=== PATIENT | male | born 1950 | race Caucasian/White ===

== ENCOUNTER 2017-02-27 08:05 | Day surgery (SDC) | payer MEDICARE, BC ==
[2017-02-27] MEDS ORDERED: fentaNYL 100 MCG/2 ML SDV ONE (08:07)
[2017-02-27] MEDS ORDERED: Propofol 200 MG/20 ML SDV ONE (08:07)
[2017-02-27] MEDS ORDERED: Midazolam 1 MG/ML 2 ML SDV ONE (08:07)
[2017-02-27] MEDS ORDERED: Sodium Chloride 0.9% 1,000 ML IV SCH (09:00)
[2017-02-27 10:57] VITALS: BP 102/70
--- NOTE | 2017-02-27 13:05 | OR ---
DATE OF PROCEDURE: 02/27/2017 PROCEDURE PERFORMED: Colonoscopy. FINDINGS: Normal colonoscopy. PREOPERATIVE DIAGNOSIS: Screening colonoscopy. POSTOPERATIVE DIAGNOSIS: Screening colonoscopy. RISKS: Risks, benefits, alternatives, and limitations including, but not limited to infection, bleeding, and perforation were explained to the patient, and he wished to proceed. PROCEDURE IN DETAIL: The patient was placed in the left lateral decubitus position. Digital rectal exam was performed without abnormality. The scope was introduced and advanced atraumatically to the ileocecal valve. The scope was brought back through the ascending, transverse, descending colon and retroflexed. No evidence of old or new blood. No masses. No diverticulosis. No colitis. The patient tolerated the procedure well. Derrell Underwood MD /[id number]
--- NOTE | 2017-03-20 23:23 | OR ---
BRIEF OPERATIVE REPORT DATE OF PROCEDURE: 02/27/2017 PROCEDURE PERFORMED: Colonoscopy. FINDINGS: Normal colonoscopy. COMPLICATIONS: None. ESTIMATED BLOOD LOSS: 0. INFECTIOUS CATEGORY: Nonapplicable. NOTE: Please see operative report for further details. Derrell Underwood MD /[id number] MTDD
== END 2017-02-27 11:05 | disposition home or self-care (01) ==
LOC: JP.SDS 08:05
PROVIDERS: ATTEND Surgery
DX: Z12.11 Encounter for screening for malignant neoplasm of colon (principal)
CPT/HCPCS: 45378; J2250; J2704; J3010; J7040

== ENCOUNTER 2019-10-14 07:13 | Day surgery (SDC) | payer BC, MEDICARE ==
[~2019-10-14 07:13] MED LIST: Bupivacaine 0.5% 50 ML MDV ONE; Lidocaine 1% with EPINEPHrine 1:100,000 50 ML MDV ONE; Midazolam 1 MG/ML 2 ML SDV ONE; Propofol 200 MG/20 ML SDV ONE; fentaNYL 100 MCG/2 ML SDV ONE
[2019-10-14] MEDS ORDERED: Sodium Chloride 0.9% 1,000 ML IV SCH (07:30)
[2019-10-14] MEDS ORDERED: metroNIDAZOLE/Normal Saline 500 MG in Premix Bag 1 BAG IV ONE (08:15)
[2019-10-14] MEDS ORDERED: ceFAZolin 2 GM in Premix Bag 1 BAG IV ONE (08:15)
[2019-10-14] MEDS ORDERED: Ropivacaine 38 ML, dexAMETHasone 8 MG, EPINEPHrine 0.4 MG, Sodium Chloride 0.9% 39.6 ML NERVRT SCH ×4 (08:45)
[2019-10-14] MEDS ORDERED: Propofol 200 MG/20 ML SDV ONE (08:58)
[2019-10-14] MEDS ORDERED: Ketorolac 60 MG/2 ML SDV ONE (09:30)
[2019-10-14] MEDS ORDERED: Acetaminophen/HYDROcodone 325-5 MG Tab PO ONE (10:28)
[2019-10-14 11:24] VITALS: BP 122/84; PULSE 57
--- NOTE | 2019-10-15 08:59 | OR ---
DATE OF PROCEDURE: 10/14/2019 SURGEON: Derrell Underwood MD PROCEDURE: Repair of right inguinal hernia, recurrent. COMPLICATIONS: None. BASE BRANDER: None. ANESTHESIA: MAC. PREOPERATIVE DIAGNOSIS: Recurrent non-incarcerated, non-strangulated hernia. POSTOPERATIVE DIAGNOSIS: Recurrent non-incarcerated non-strangulated hernia. RISKS: Risks, benefits, alternatives, and limitations including, but not limited to infection, bleeding, injury to testicular structures, testicular necrosis, chronic wounds, chronic pain, seroma, hematoma, and other risks not listed here were explained to the patient, who wished to proceed. PROCEDURE IN DETAIL: The patient was placed supine position. A curvilinear incision was made in a classic fashion in the right lower quadrant. This was carried down with electrocautery to the external oblique aponeurosis. This was opened with a 15 blade and then a Metzenbaum scissors. The indirect inguinal hernia was identified. The sac was quite integrally associated with the testicular artery and vas deferens. Blunt gentle dissection was used to dissect this free. This sac was then mobilized to its base and suture ligated. An extra-large plug and patch system was then placed with interrupted 0 Vicryl sutures approximately every 5 mm. This was surrounded by the cord, with careful attention made not to put undue tension on the cord itself. The external oblique aponeurosis was then reapproximated. The skin was closed with 4-0 Vicryl after subcutaneous approximation of tissues with 3-0 Vicryl. The patient tolerated the procedure well. Derrell Underwood MD /[id number]
--- NOTE | 2019-10-15 09:02 | OR ---
DATE OF PROCEDURE: 10/14/2019 SURGEON: Derrell Underwood MD PROCEDURE: Right rectus sheath block, right transversus abdominis plane block. COMPLICATIONS: None. SYSTEM SUPPORT DEVELOPER: None. RISKS: Risks, benefits, alternatives, and limitations including, but not limited to infection, bleeding, injury to abdominal structures along with chronic pain were explained to the patient who wished to proceed. PROCEDURE IN DETAIL: The patient was placed in the supine position. The right transversus plane was identified using a 13 megahertz ultrasound probe. Approximately 80% solution was injected. The right rectus sheath was identified and 80% of the remaining solution was then injected into the rectus sheath on the posterior aspect. The patient tolerated the procedure well. Derrell Underwood MD /[id number]
== END 2019-10-14 11:38 | disposition home or self-care (01) ==
LOC: JP.SDS 07:13
PROVIDERS: ATTEND Surgery
DX: K40.90 Unilateral inguinal hernia, without obstruction or gangrene, not specified as recurrent (principal)
CPT/HCPCS: 49520; A9270; C1781; J0171; J0690; J1100; J1885; J2250; J2704; J2795; J3010; J3490; J7030; J7050

== ENCOUNTER 2024-07-19 12:06 | Emergency (ER) | payer MEDICARE ==
[2024-07-19 13:23] LABS: HEMATOCRIT 18.3 % (38.4-49.7); MEAN CORPUSCULAR HEMOGLOBIN 37.8 pg (31.6-35.5); MEAN CORPUSCULAR HGB CONC 32.2 g/dL (31.6-35.5); MEAN CORPUSCULAR VOLUME 117.3 fL (81.4-99.0); PLATELET COUNT,PLT 218 K/uL (130-375); RED BLOOD CELL COUNT 1.56 M/uL (4.14-5.76)
[2024-07-19 13:43] LABS: HEMOGLOBIN 5.9 g/dL (12.9-16.9); WHITE BLOOD CELL COUNT,WBC 51.7 K/uL (3.2-11.0)
[2024-07-19 13:44] LABS: A/G RATIO 1.2 (1.2-2.2); ALANINE AMINOTRANSFERASE,ALT 67 U/L (12-78); ALBUMIN 3.5 g/dL (3.4-5.0); ALKALINE PHOSPHATASE 119 U/L (46-116); ANION GAP 16.2 mmol/L (5.0-14.0); ASPARTATE AMNIOTRANSFERASE,AST 53 U/L (15-37); BILIRUBIN TOTAL 3.8 mg/dL (0.2-1.0); BLOOD UREA NITROGEN,BUN 26 mg/dL (7-18); CALCIUM 8.9 mg/dL (8.5-10.1); CARBON DIOXIDE,CO2 25 mmol/L (21-32); CHLORIDE,CL 102 mmol/L (100-108); CREATININE 1.1 mg/dL (0.8-1.3); EST CRCL DRUG DOSING (CG) 61.76 mL/min; ESTIMATED GFR 71 mL/min (>60); GLUCOSE RANDOM 104 mg/dL (74-106); POTASSIUM,K 4.2 mmol/L (3.6-5.2); PROTEIN TOTAL,TP 6.3 g/dL (6.4-8.2); SODIUM,NA 139 mmol/L (140-148)
[2024-07-19 13:48] VITALS: BP 123/64; PULSE 89
[2024-07-19 14:04] LABS: LYMPHOCYTES PERCENT MAN 88 % (24-44); MONOCYTES ABSOLUTE MAN 1.03 K/uL (0.20-0.90); MONOCYTES PERCENT MAN 2 % (2-6); MYELOCYTE ABSOLUTE MAN 1.03; MYELOCYTE PERCENT MAN 2 %; NEUTROPHILS ABSOLUTE MAN 4.14 K/uL (1.0-7.6); SEG NEUTROPHILS PERCENT MAN 8 % (36-66)
[2024-07-19 14:05] LABS: ANISOCYTOSIS MODERATE; MICROCYTOSIS FEW
[2024-07-19] MEDS: methylPREDNISolone Sodium Succinate 125 MG/2 ML SDV IVPUSH ONE (15:37)
== END 2024-07-19 16:12 ==
LOC: JP.ED 12:06
DX: D58.9 Hereditary hemolytic anemia, unspecified (principal); E03.9 Hypothyroidism, unspecified; Z79.890 Hormone replacement therapy; Z79.899 Other long term (current) drug therapy; Z79.82 Long term (current) use of aspirin
CPT/HCPCS: 36415; 71046; 80053; 85025; 86850; 86900; 86901; 88104; 96374; 99285; J2919; 86870; 86880; 86902; 86920; 86922; 86970; 86978; 99283